=== PATIENT | male | born 1955 | race Caucasian/White ===

== ENCOUNTER 2017-07-24 06:42 | Observation (INO) | payer MEDICARE ==
[~2017-07-24] VITALS: Ht 185.4 cm; Wt 119.0 kg
[~2017-07-24 06:42] MED LIST: AMLO10TA2 PO; CHOL2000 PO; FENO145T13 PO; HYDR25TA6 PO; LISI40TA PO; METF500T4 PO; NAPR-850 PO; OMEG1CAP23 PO; OXYC5CAP2 PO; RIVA20TA PO; SAW/1TAB2 PO; TRAM50TA2 PO; TRAV5DRO EACHEYE; VITAMIN B12 PO
[2017-07-24] MEDS ORDERED: SODIUM CHLORIDE 0.9% 1,000 ML IV SCH (06:52)
[2017-07-24 06:58] VITALS: BP 144/85
[2017-07-24] MEDS ORDERED: METO25TA91 PO (07:18)
[2017-07-24] MEDS ORDERED: AMIO200T42 PO (07:18)
[2017-07-24] MEDS ORDERED: HEPARIN 1,000 UNITS/ML, 10ML ONE (07:53)
[2017-07-24] MEDS ORDERED: LIDOCAINE 2%, 20ML ONE (07:54)
[2017-07-24] MEDS ORDERED: MIDAZOLAM 1 MG/ML, 5ML ONE (07:55)
[2017-07-24] MEDS ORDERED: FENTANYL PF 250 MCG/5ML ONE ×2 (07:55→09:05)
[2017-07-24] MEDS ORDERED: PROTAMINE SULFATE 10 MG/ML, 5ML ONE (09:35)
[2017-07-24] MEDS ORDERED: LIDOCAINE/PF 1%-EPI 1:200K, 30 ML ONE (09:53)
[2017-07-24] MEDS ORDERED: OXYcodone 5 MG/5 ML ORAL.SOL UDC ONE (10:20)
[2017-07-24] MEDS ORDERED: FENTANYL PF 100 MCG/2ML ONE (10:20)
[2017-07-24] MEDS ORDERED: ACETAMINOPHEN 650 MG/20.3 ML UDC ONE (10:20)
[2017-07-24] MEDS: FENTANYL PF 100 MCG/2ML IV PRN ×2 (10:23→10:34)
[2017-07-24] MEDS ORDERED: MIDAZOLAM 1 MG/ML, 2ML IV PRN (10:30)
[2017-07-24] MEDS ORDERED: LORazepam 2 MG/ML, 1ML IVPush PRN (10:30)
[2017-07-24] MEDS ORDERED: ACETAMINOPHEN 325 MG TABLET PO PRN ×2 (10:30)
[2017-07-24] MEDS ORDERED: DIAZEPAM 5 MG/ML, 2ML IVPush PRN (10:30)
[2017-07-24] MEDS ORDERED: HYDROmorphone 1 MG/ML, 1ML IV PRN (10:30)
[2017-07-24] MEDS ORDERED: ONDANSETRON 2MG/ML, 2ML IVPush PRN (10:30)
[2017-07-24] MEDS ORDERED: PROMETHAZINE 25 MG/ML, 1ML IV PRN (10:30)
[2017-07-24] MEDS ORDERED: ZOLPIDEM 5MG TABLET PO PRN (10:30)
[2017-07-24] MEDS ORDERED: OXYcodone 5 MG/5 ML ORAL.SOL UDC PO PRN (10:30)
[2017-07-24] MEDS ORDERED: MULT-658 PO (14:00)
[2017-07-24 14:33] VITALS: BP 124/73
[2017-07-24] MEDS ORDERED: ONDANSETRON 2MG/ML, 2ML ONE (15:14)
[2017-07-24] MEDS ORDERED: ROCURONIUM 10 MG/ML,10ML ONE (15:14)
[2017-07-24] MEDS ORDERED: DEXAMETHASONE 4 MG/ML, 1ML ONE (15:14)
[2017-07-24] MEDS ORDERED: PROPOFOL 10 MG/ML, 20ML ONE (15:14)
[2017-07-24] MEDS ORDERED: SUCCINYLCHOLINE 20 MG/ML, 10ML ONE (15:14)
[2017-07-24] MEDS ORDERED: RIVAROXABAN 20 MG TABLET PO SCH (18:00)
[2017-07-24 19:50] VITALS: BP 136/68
[2017-07-24] MEDS ORDERED: TRAVOPROST OPHTH 0.004%, 2.5ML EACHEYE SCH (21:00)
[2017-07-24] MEDS ORDERED: LATANOPROST OPHTH 0.005%, 2.5ML EACHEYE SCH (21:36)
[2017-07-25 02:00] VITALS: BP 135/72
[2017-07-25 07:25] VITALS: BP 149/76
[2017-07-25] MEDS ORDERED: ACET325T14 PO (08:59)
[2017-07-25] MEDS ORDERED: CYANOCOBALAMIN 1,000 MCG TABLET PO SCH (09:00)
[2017-07-25] MEDS ORDERED: OMEGA-3/FISH OIL CAPSULE PO SCH (09:00)
[2017-07-25] MEDS ORDERED: SAW PO SCH (09:00)
[2017-07-25] MEDS ORDERED: VIT E PO SCH (09:00)
[2017-07-25] MEDS ORDERED: CHOLECALCIFEROL 1,000 UNIT TABLET PO SCH (09:00)
[2017-07-25] MEDS ORDERED: LYC PO SCH (09:00)
[2017-07-25] MEDS ORDERED: METOPROLOL SUCCINATE 25 MG TAB.ER.24H PO SCH (09:00)
[2017-07-25] MEDS ORDERED: SOD SEL PO SCH (09:00)
[2017-07-25] MEDS ORDERED: [UNRECOGNIZED DRUG - OTHER] PO SCH (09:00)
[2017-07-25] MEDS ORDERED: AMLODIPINE 5 MG TABLET PO SCH (09:00)
[2017-07-25] MEDS ORDERED: BETA PO SCH (09:00)
[2017-07-25] MEDS ORDERED: LISINOPRIL 20 MG TABLET PO SCH (09:00)
[2017-07-25] MEDS ORDERED: PYG PO SCH (09:00)
== END 2017-07-25 13:57 | disposition home or self-care (01) ==
LOC: CACL 06:42 → ORIP 10:30 → 5SO 11:20
PROVIDERS: ADMIT Internal Medicine Cardiovascular Disease; ATTEND Internal Medicine Cardiovascular Disease
DX: I48.0 Paroxysmal atrial fibrillation (principal); I48.92 Unspecified atrial flutter; I45.9 Conduction disorder, unspecified; M25.552 Pain in left hip; M25.551 Pain in right hip
CPT/HCPCS: 82962; 85347; 93306; 93613; 93655; 93656; 93662; C1730; C1731; C1732; C1759; C1766; C1893; C1894; G0378; J0330; J1100; J1644; J2250; J2405; J2704; J2720; J3010; J3490